=== PATIENT | female | born 1935 | race Caucasian/White ===

== ENCOUNTER 2017-04-10 11:39 | Inpatient (IN) | payer OTHER, MEDICARE ==
[~2017-04-10] VITALS: Ht 152.4 cm; Wt 45.0 kg
[2017-04-10 11:48] VITALS: BP 170/70; PULSE 110; RESP 18; TEMP 97.7; O2SAT 96
[2017-04-10 11:55] VITALS: O2SAT 98
[2017-04-10 12:43] LABS: AUTOMATED NEUTROPHIL # 8.3 TH/MM3 (1.8-7.7); BASOPHIL # 0.1 TH/MM3 (0-0.2); BASOPHIL % 0.5 % (0.0-2.0); EOSINOPHIL % 0.1 % (0.0-4.0); HEMOGLOBIN 11.9 GM/DL (11.6-15.3); LYMPH % 8.6 % (9.0-44.0); LYMPHOCYTE # 0.9 TH/MM3 (1.0-4.8); MEAN CELL VOLUME 99.3 FL (80.0-100.0); MEAN CORPUSCULAR HEMOGLOBIN 35.8 PG (27.0-34.0); MEAN PLATELET VOLUME 7.4 FL (7.0-11.0); MONO % 10.1 % (0.0-8.0); NEUT % 80.7 % (16.0-70.0); PLATELET COUNT 248 TH/MM3 (150-450); RED BLOOD COUNT 3.32 MIL/MM3 (4.00-5.30); RED CELL DISTRIBUTION WIDTH 14.5 % (11.6-17.2); WHITE BLOOD COUNT 10.3 TH/MM3 (4.0-11.0)
[2017-04-10 12:52] LABS: BACTERIA, URINE MANY /hpf; BILIRUBIN, URINE NEG (NEG); BLOOD, URINE TRACE (NEG); GLUCOSE,URINE NEG (NEG); KETONE, URINE 10 mg/dL (NEG); MUCUS URINE FEW /lpf (OCC); NITRITE,URINE POS (NEG); PH, URINE 5.5 (5.0-8.5); SQUAMOUS EPITHELIAL CELL URINE 1 /hpf (0-5); URINE COLOR YELLOW (YELLW/STRAW); URINE LEUKOCYTE ESTERASE LARGE (NEG); WHITE BLOOD CELL CLUMPS MANY
[2017-04-10 12:53] LABS: PROTHROMBIN TIME - PATIENT 10.4 SEC (9.8-11.6)
[2017-04-10 12:57] LABS: BICARBONATE 23.6 MEQ/L (21.0-32.0); CALCIUM 10.1 MG/DL (8.5-10.1); CREATININE 0.66 MG/DL (0.50-1.00)
--- NOTE | 2017-04-10 12:58 | RADRPT ---
EXAM DATE/TIME: 04/10/2017 12:42 [facility] COMPARISON: No previous studies available for comparison. EXTERNAL COMPARISON : INDICATIONS : Pelvic pain, fall. MEDICAL HISTORY : None. SURGICAL HISTORY : None. ENCOUNTER: Initial ACUITY: 1 day PAIN SCORE: 2/10 LOCATION: Right hip FINDINGS: Degenerative changes lower lumbar spine and both hips. Displaced fracture is not appreciated. CONCLUSION: Negative for fracture Catrachito Stewart MD FACR on April 10, 2017 at 12:55 Board Certified Radiologist. This report was verified electronically.
--- NOTE | 2017-04-10 12:59 | RADRPT ---
EXAM DATE/TIME: 04/10/2017 12:43 [facility] COMPARISON: No previous studies available for comparison. INDICATIONS : Right side rib pain,fall. MEDICAL HISTORY : None. SURGICAL HISTORY : None. ENCOUNTER: Initial ACUITY: 1 day PAIN SCORE: 3/10 LOCATION: Right lower chest FINDINGS: Surgical clips right axilla. Old rib fractures along the right. I do not see acute displaced rib fr acture. CONCLUSION: Negative for pneumothorax. Old rib fractures on the right. Catrachito Stewart MD FACR on April 10, 2017 at 12:56 Board Certified Radiologist. This report was verified electronically.
--- NOTE | 2017-04-10 13:05 | RADRPT ---
EXAM DATE/TIME: 04/10/2017 12:53 [facility] COMPARISON: No previous studies available for comparison. INDICATIONS : Fall last night RADIATION DOSE: 33.08 CTDIvol (mGy) MEDICAL HISTORY : None SURGICAL HISTORY : None. ENCOUNTER: Initial ACUITY: 1 day PAIN SCALE: 6/10 LOCATION: cranial TECHNIQUE: Multiple contiguous axial images were obtained of the head. Using automated exposure control and adj ustment of the mA and/or kV according to patient size, radiation dose was kept as low as reasonably a chievable to obtain optimal diagnostic quality images. DICOM format image data is available electro nically for review and comparison. FINDINGS: CEREBRUM: The ventricles are normal for age. No evidence of midline shift, mass lesion, hemorrhage or acute in farction. No extra-axial fluid collections are seen. POSTERIOR FOSSA: The cerebellum and brainstem are intact. The 4th ventricle is midline. The cerebellopontine angle i s unremarkable. EXTRACRANIAL: The visualized portion of the orbits is intact. SKULL: The calvaria is intact. Cephalhematoma right temporal region No evidence of skull fracture. CONCLUSION: Cephalhematoma right temporal region. Intracranial contents unremarkable. Catrachito Stewart MD FACR on April 10, 2017 at 13:03 Board Certified Radiologist. This report was verified electronically.
--- NOTE | 2017-04-10 13:10 | PD ---
HPI Chief Complaint: Fall Time Seen by Provider: 12:27 Travel History International Travel<30 days: No Contact w/Intl Traveler<30days: No Traveled to known affect area: No History of Present Illness HPI Although EMS brought the patient and the patient herself states that she fell down last night. She denies having any severe pain anywhere that inhibited her from getting up however she stated that she was shaking so much that she could not steady herself and this was the reason why she spent the night on the floor. Patient's episode was not witnessed and so it is difficult to say whether there was any syncope or simply a mechanical fall. Per patient she denies having any memory gaps and recalls everything. Patient denies any associated headache back pain hip pain or extremity pain. No alleviating or aggravating factors. Only area that the patient complained of was a right lower chest wall which she complained of a 2 out of 10 level discomfort [facility] Social History Alcohol Use: No Tobacco Use: No Substance Use: No Allergies-Medications (Allergen,Severity, Reaction): Coded Allergies: No Known Allergies (Unverified , 04/10/17) Review of Systems Except as stated in HPI: all other systems reviewed are Neg General / Constitutional: No: Fever Eyes: No: Visual changes HENT: No: Headaches Cardiovascular: No: Chest Pain or Discomfort Respiratory: No: Shortness of Breath Gastrointestinal: No: Abdominal Pain Genitourinary: No: Dysuria Musculoskeletal: No: Pain Skin: No Rash Neurologic: Positive: Syncope (??) Psychiatric: No: Depression Endocrine: No: Polydipsia Hematologic/Lymphatic: No: Easy Bruising Physical Exam Narrative GENERAL: SKIN: Warm and dry. Multiple contusions noted including her right side of her face, right shoulder, bilateral gorman area, however no area of crepitus displacement or angulation HEAD: Atraumatic. Normocephalic. EYES: Pupils equal and round. No scleral icterus. No injection or drainage. ENT: No nasal bleeding or discharge. Mucous membranes pink and moist. NECK: Trachea midline. No JVD. CARDIOVASCULAR: Regular rate and rhythm. RESPIRATORY: No accessory muscle use. Clear to auscultation. Breath sounds equal bilaterally. GASTROINTESTINAL: Abdomen soft, non-tender, nondistended. Hepatic and splenic margins not palpable. MUSCULOSKELETAL: Extremities without clubbing, cyanosis, or edema. No obvious deformities. NEUROLOGICAL: Awake and alert. No obvious cranial nerve deficits. Motor grossly within normal limits. Five out of 5 muscle strength in the arms and legs. Normal speech. PSYCHIATRIC: Appropriate mood and affect; insight and judgment normal. Data Data Last Documented VS Vital Signs Date Time Temp Pulse Resp B/P (MAP) Pulse Ox O2 Delivery O2 Flow Rate FiO2 04/10/17 11:55 98 Room Air 04/10/17 11:48 97.7 110 18 170/70 (103) Orders Orders Basic Metabolic Panel (Bmp) (04/10/17 12:27) Complete Blood Count With Diff (04/10/17 12:27) Prothrombin Time / Inr (Pt) (04/10/17 12:27) Act Partial Throm Time (Ptt) (04/10/17 12:27) Urinalysis - C+S If Indicated (04/10/17 12:27) Pelvis, Ap Only (Routine) (04/10/17 12:27) Ct Brain W/O Iv Contrast(Rout) (04/10/17 12:27) Ct Cerv Spine W/O Contrast (04/10/17 12:27) Ct Facial Bones W/O Iv Cont (04/10/17 12:27) Iv Access Insert/Monitor (04/10/17 12:27) Ecg Monitoring (04/10/17 12:27) Oximetry (04/10/17 12:27) Oxygen Administration (04/10/17 12:27) Ribs, Uni (W/Exp Cxr-Min 3vw) (04/10/17 ) Urine Culture (04/10/17 12:15) Electrocardiogram (04/10/17 ) Admit Order (Ed Use Only) (04/10/17 15:57) Consult Neurosurgery (04/10/17 ) Admit To Inpatient (04/10/17 ) Vital Signs (Adult) Q4H (04/10/17 15:56) Activity Bed Rest (04/10/17 15:56) Orthopaedic Technologist / Telemetry .CONTINUOUS (04/10/17 15:56) Intake + Output DRAKE.QSHIFT (04/10/17 15:56) Diet Heart Healthy (04/10/17 Dinner) Sodium Chloride 0.9% Flush (Ns Flush) (04/10/17 16:00) Sodium Chloride 0.9% Flush (Ns Flush) (04/10/17 21:00) Comprehensive Metabolic Panel (04/11/17 06:00) Complete Blood Count With Diff (04/11/17 06:00) Pt Request For Service (04/10/17 15:56) Ot Request For Service (04/10/17 15:56) Case Management Consult (04/10/17 15:56) Scd Bilateral/Knee High DRAKE.BID (04/10/17 15:56) Naloxone Inj (Narcan Inj) (04/10/17 16:00) Magnesium Hydroxide Liq (Milk Of Magnesi (04/10/17 16:00) Sennosides (Senokot) (04/10/17 16:00) Bisacodyl Supp (Dulcolax Supp) (04/10/17 16:00) Lactulose Liq (Lactulose Liq) (04/10/17 16:00) Inpatient Certification (04/10/17 ) Ceftriaxone Inj (Rocephin Inj) (04/10/17 17:00) Labs Laboratory Tests Test 04/10/17 12:15 White Blood Count 10.3 TH/MM3 Red Blood Count 3.32 MIL/MM3 Hemoglobin 11.9 GM/DL Hematocrit 33.0 % Mean Corpuscular Volume 99.3 FL Mean Corpuscular Hemoglobin 35.8 PG Mean Corpuscular Hemoglobin Concent 36.0 % Red Cell Distribution Width 14.5 % Platelet Count 248 TH/MM3 Mean Platelet Volume 7.4 FL Neutrophils (%) (Auto) 80.7 % Lymphocytes (%) (Auto) 8.6 % Monocytes (%) (Auto) 10.1 % Eosinophils (%) (Auto) 0.1 % Basophils (%) (Auto) 0.5 % Neutrophils # (Auto) 8.3 TH/MM3 Lymphocytes # (Auto) 0.9 TH/MM3 Monocytes # (Auto) 1.0 TH/MM3 Eosinophils # (Auto) 0.0 TH/MM3 Basophils # (Auto) 0.1 TH/MM3 CBC Comment AUTO DIFF Differential Comment AUTO DIFF CONFIRMED Prothrombin Time 10.4 SEC Prothromb Time International Ratio 1.0 RATIO Activated Partial Thromboplast Time 23.6 SEC Urine Color YELLOW Urine Turbidity HAZY Urine pH 5.5 Urine Specific [place] 1.014 Urine Protein TRACE mg/dL Urine Glucose (UA) NEG mg/dL Urine Ketones 10 mg/dL Urine Occult Blood TRACE Urine Nitrite POS Urine Bilirubin NEG Urine Urobilinogen LESS THAN 2.0 MG/DL Urine Leukocyte Esterase LARGE Urine RBC 6 /hpf Urine WBC 76 /hpf Urine WBC Clumps MANY Urine Squamous Epithelial Cells 1 /hpf Urine Bacteria MANY /hpf Urine Mucus FEW /lpf Microscopic Urinalysis Comment CATH-CULTURE IND Blood Urea Nitrogen 18 MG/DL Creatinine 0.66 MG/DL Random Glucose 120 MG/DL Calcium Level 10.1 MG/DL Sodium Level 130 MEQ/L Potassium Level 4.4 MEQ/L Chloride Level 96 MEQ/L Carbon Dioxide Level 23.6 MEQ/L Anion Gap 10 MEQ/L Estimat Glomerular Filtration Rate 86 ML/MIN MDM Medical Decision Making Medical Screen Exam Complete: Yes Emergency Medical Condition: Yes Medical Record Reviewed: Yes Differential Diagnosis Intracranial hemorrhage versus skull fracture versus facial fracture versus neck fracture versus right rib fractures Narrative Course UA consistent with UTI, CBC without leukocytosis or anemia BMP showed some hyponatremia and some mild to moderate dehydration markers. CT head negative for skull fracture or intracranial hemorrhage. Cervical spine CT negative for any acute fracture or dislocation. Rib series are negative for any acute fractures did note some previous old healed rib fractures on the right side. Rest of imaging were negative for any fractures or dislocations. Due to the patient's frailty and abnormal lab findings patient will be admitted and have case management involved for possible placement Diagnosis Primary Impression: Generalized weakness Additional Impressions: Urinary tract infection Qualified Codes: N30.00 - Acute cystitis without hematuria Hyponatremia Admitting Information Admitting Physician Requests: Admit Lion Guillaume MD Apr 10, 2017 13:10
--- NOTE | 2017-04-10 13:35 | RADRPT ---
EXAM DATE/TIME: 04/10/2017 12:53 [facility] COMPARISON: No previous studies available for comparison. INDICATIONS : Fall last night RADIATION DOSE: 17.08 CTDIvol (mGy) MEDICAL HISTORY : None SURGICAL HISTORY : None. ENCOUNTER: Initial ACUITY: 1 day PAIN SCALE: 6/10 LOCATION: Bilateral neck TECHNIQUE: Volumetric scanning of the cervical spine was performed. Multiplanar reconstructions in the sagittal, coronal and oblique axial planes were performed. Using automated exposure control and adjustment o f the mA and/or kV according to patient size, radiation dose was kept as low as reasonably achievable to obtain optimal diagnostic quality images. DICOM format image data is available electronically f or review and comparison. FINDINGS: There is no acute fracture or prevertebral soft tissue swelling. Diffuse cervical spondylosis is note d. There is very prominent bridging osteophytes extending from C4 through C6. These result in moderat e to severe spinal stenoses at C4-5 and C5-6. Mild spinal stenosis is noted at C3-4 and C6-7. Moderat e bilateral foraminal narrowing is noted from C3 through C7. The bony relationship and alignment bet ween C1 and C2 is well maintained. CONCLUSION: 1. Moderate to severe spinal stenoses at C4-5 and C5-6 and mild spinal stenoses at C3-4 and C6-7. 2. No acute fracture or prevertebral soft tissue swelling. 3. Moderate bilateral narrowing from C3 through C7. 4. Diffuse cervical spondylosis. Guido Ordaz MD on April 10, 2017 at 13:28 Board Certified Radiologist. This report was verified electronically.
--- NOTE | 2017-04-10 13:41 | RADRPT ---
EXAM DATE/TIME: 04/10/2017 12:53 [facility] COMPARISON: No previous studies available for comparison. INDICATIONS : Fall last night,contusion right eye. RADIATION DOSE: 58.23 CTDIvol (mGy) MEDICAL HISTORY : None SURGICAL HISTORY : None. ENCOUNTER: Initial ACUITY: 1 day PAIN SCORE: 6/10 LOCATION: Right facial TECHNIQUE: Volumetric scanning of the facial bones was performed. Using automated exposure control and adjustme nt of the mA and/or kV according to patient size, radiation dose was kept as low as reasonably achiev able to obtain optimal diagnostic quality images. DICOM format image data is available electronicall y for review and comparison. FINDINGS: ORBITS: The orbital and infraorbital osseous structures are intact. The retroconal structures have a normal configuration. No radiopaque foreign bodies are seen. NASAL BONE: The nasal bone and maxillary spine are intact ZYGOMATIC ARCHES: Symmetric without evidence of fracture. SINUSES: The maxillary, ethmoid and frontal sinuses are intact. No air-fluid levels seen. NASAL CAVITY: The nasal septum is intact and midline. The lacrimal ducts are intact. SOFT TISSUES: There is a small subcutaneous hematoma in the right lateral supraorbital region. No evidence of under lying fracture. INTRACRANIAL: No intracranial air seen. CRIBIFORM PLATE: Grossly intact. CONCLUSION: Right supraorbital soft tissue hematoma. No evidence of fracture. Justus aGrcia MD on April 10, 2017 at 13:38 Board Certified Radiologist. This report was verified electronically.
[2017-04-10] MEDS ORDERED: SODIUM CHLORIDE 0.9% FLUSH 10 ML FLUSH IV FLUSH PRN (16:00)
[2017-04-10] MEDS ORDERED: SENNOSIDES 8.6 MG TAB PO PRN (16:00)
[2017-04-10] MEDS ORDERED: NALOXONE HCL 0.4 MG/ML AMP IV PUSH PRN (16:00)
[2017-04-10] MEDS ORDERED: MAGNESIUM HYDROXIDE SUSP 30 ML CUP PO PRN (16:00)
[2017-04-10] MEDS ORDERED: LACTULOSE SYRUP 20 GM/30 ML CUP PO PRN (16:00)
[2017-04-10] MEDS ORDERED: BISACODYL 10 MG SUPP RECTAL PRN (16:00)
[2017-04-10] MEDS: cefTRIAXone INJ 1,000 MG in SODIUM CHLORIDE 0.9% INJ 100 ML IV SCH (17:25)
[2017-04-10 17:28] VITALS: BP 152/67; PULSE 92; RESP 17; O2SAT 100
--- NOTE | 2017-04-10 17:50 | PD.CONS ---
History of Present Illness Service Neurosurgery Consult Requested By Emergency room. Dr. Guillaume Reason for Consult Cervical stenosis Primary Care Physician Unknown Diagnoses: History of Present Illness 82-year-old female who fell last night at home without definite loss of consciousness. She states that she does not remember the fall. She does not recall any dizziness prior to falling. She felt shaky after the fall, and was not able to stand up. She complains of generalized weakness in her lower extremities since she fell. No loss of bowel or bladder function since she fell. No significant neck or low back pain. No history of significant neck or back problems. Ms. Villarreal does state that she has had some gradual decline in her walking over the past year and has been using a rolling walker with a seat for approximately 10-12 months. She has had some problems with loose stools but no definite bowel or bladder dysfunction over the past year. Review of Systems Constitutional: DENIES: Fatigue, Fever Ears, nose, mouth, throat: COMPLAINS OF: Hearing loss, DENIES: Vertigo Respiratory: DENIES: Cough, Shortness of breath Cardiovascular: DENIES: Chest pain, Palpitations Gastrointestinal: COMPLAINS OF: Diarrhea, DENIES: Abdominal pain, Nausea, Vomiting Musculoskeletal: DENIES: Joint pain, Muscle aches, Stiffness, Back pain, Neck pain Hematologic/lymphatic: COMPLAINS OF: Bruising Neurologic: COMPLAINS OF: Abnormal gait, DENIES: Headache Psychiatric: DENIES: Confusion Past Family Social History Allergies: Coded Allergies: No Known Allergies (Unverified , 04/10/17) Past Medical History States she has "borderline" diabetes Gives no history of hypertension, dyslipidemia. No cardiac or pulmonary disease , cancer, arthritis. Past Surgical History No major surgeries reported Reported Medications No prescription medications reported Family History States no history of cancer, neurologic disorders in the family. No definite diabetes. Social History She smokes cigarettes for a few years when she was in her 20s or 30s. No history of significant alcohol use. Physical Exam Vital Signs Vital Signs Date Time Temp Pulse Resp B/P (MAP) Pulse Ox O2 Delivery O2 Flow Rate FiO2 04/10/17 17:28 92 17 152/67 (95) 100 Room Air 04/10/17 11:55 98 Room Air 04/10/17 11:55 98 Room Air 04/10/17 11:48 97.7 110 18 170/70 (103) 96 Physical Exam GENERAL: This is a well-nourished, normally developed elderly patient, no apparent distress. SKIN: Significant contusion and ecchymosis over the left forearm, hand and wrist HEAD: Positive edema and ecchymosis including periorbital edema and ecchymosis over the right side of the face and forehead. No scalp laceration EYES: Right periorbital edema and ecchymosis. Mild right conjunctival edema ENT: Right facial and periorbital edema and ecchymosis. No CSF otorrhea or rhinorrhea. Dentition intact. NECK: Trachea midline. No cervical spine tenderness. CARDIOVASCULAR: Regular rate and rhythm without murmurs, gallops, or rubs. RESPIRATORY: Clear to auscultation. Breath sounds equal bilaterally. No wheezes , rales, or rhonchi. GASTROINTESTINAL: Abdomen soft, non-tender, nondistended. No hepato-splenomegaly , or palpable masses. No guarding. MUSCULOSKELETAL: Extremities without cyanosis, or edema. No joint tenderness, or edema noted. No calf tenderness. Dorsalis pedis pulses 2+ bilateral NEUROLOGICAL: Awake and alert Oriented X 3 Speech is clear Conversant and appropriate Follow simple commands well Answers questions appropriately Reasonable judgment and insight Recent and remote memory are intact No evidence of anxiety or depression Pupils are equal and reactive to accommodation. Extra-ocular movements, visual larose to confrontation, facial sensorimotor, tongue, palate, sternocleidomastoid testing, and bilateral shoulder shrug are all intact. Sensation is intact to light touch in all extremities Strength normal major flexion and extension groups all extremities except for decreased to 3+/5 bilateral triceps and hand intrinsics. Brandi's absent bilaterally No ankle clonus Plantar responses absent bilateral Fine motor movements mildly impaired in both upper extremities Laboratory Laboratory Tests Test 04/10/17 12:15 White Blood Count 10.3 Red Blood Count 3.32 Hemoglobin 11.9 Hematocrit 33.0 Mean Corpuscular Volume 99.3 Mean Corpuscular Hemoglobin 35.8 Mean Corpuscular Hemoglobin Concent 36.0 Red Cell Distribution Width 14.5 Platelet Count 248 Mean Platelet Volume 7.4 Neutrophils (%) (Auto) 80.7 Lymphocytes (%) (Auto) 8.6 Monocytes (%) (Auto) 10.1 Eosinophils (%) (Auto) 0.1 Basophils (%) (Auto) 0.5 Neutrophils # (Auto) 8.3 Lymphocytes # (Auto) 0.9 Monocytes # (Auto) 1.0 Eosinophils # (Auto) 0.0 Basophils # (Auto) 0.1 CBC Comment AUTO DIFF Differential Comment AUTO DIFF CONFIRMED Prothrombin Time 10.4 Prothromb Time International Ratio 1.0 Activated Partial Thromboplast Time 23.6 Urine Color YELLOW Urine Turbidity HAZY Urine pH 5.5 Urine Specific [place] 1.014 Urine Protein TRACE Urine Glucose (UA) NEG Urine Ketones 10 Urine Occult Blood TRACE Urine Nitrite POS Urine Bilirubin NEG Urine Urobilinogen LESS THAN 2.0 Urine Leukocyte Esterase LARGE Urine RBC 6 Urine WBC 76 Urine WBC Clumps MANY Urine Squamous Epithelial Cells 1 Urine Bacteria MANY Urine Mucus FEW Microscopic Urinalysis Comment CATH-CULTURE IND Blood Urea Nitrogen 18 Creatinine 0.66 Random Glucose 120 Calcium Level 10.1 Sodium Level 130 Potassium Level 4.4 Chloride Level 96 Carbon Dioxide Level 23.6 Anion Gap 10 Estimat Glomerular Filtration Rate 86 Date/Time Source Procedure Growth Status 04/10/17 12:15 Urine Catheterized Urine Urine Culture Pending Received Result Diagram: 04/10/17 1215 04/10/17 1215 Imaging 04/10/2017 CT scan of the head and cervical spine images are reviewed by the undersigned. No evidence of significant traumatic brain injury. There is positive right temporal cephalohematoma. There is severe stenosis at the C4-C6 levels related primarily to extensive posterior osteophytic disc complexes, ossification of the posterior longitudinal ligament at these levels. No acute fracture or subluxation noted. Pelvis X-Ray 04/10/[id number] Signed Impressions: Service Date/Time: Monday, April 10, 2017 12:42 - CONCLUSION: Negative for fracture Catrachito Stewart MD FACR Maxillofacial CT 04/10/171226 Signed Impressions: Service Date/Time: Monday, April 10, 2017 12:53 - CONCLUSION: Right supraorbital soft tissue hematoma. No evidence of fracture. Justus Garcia MD Head CT 04/10/171226 Signed Impressions: Service Date/Time: Monday, April 10, 2017 12:53 - CONCLUSION: Cephalhematoma right temporal region. Intracranial contents unremarkable. Catrachito Stewart MD FACR Cervical Spine CT 04/10/171226 Signed Impressions: Service Date/Time: Monday, April 10, 2017 12:53 - CONCLUSION: 1. Moderate to severe spinal stenoses at C4-5 and C5-6 and mild spinal stenoses at C3-4 and C6-7. 2. No acute fracture or prevertebral soft tissue swelling. 3. Moderate bilateral narrowing from C3 through C7. 4. Diffuse cervical spondylosis. Guido Ordaz MD Ribs X-Ray 04/10/17 0000 Signed Impressions: Service Date/Time: Monday, April 10, 2017 12:43 - CONCLUSION: Negative for pneumothorax. Old rib fractures on the right. Catrachito Stewart MD FACR Assessment and Plan Assessment and Plan Impression: 1. 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 No acute fracture or subluxation 2. Temporal cephalhematoma without evidence of traumatic brain injury. Recommendations: Findings were discussed at length with the patient in the emergency room. She is being admitted for further observation and neurologic checks. Due to the patient's upper extremity weakness, particularly hand intrinsics and the severity of the stenosis noted on CT scan, an MRI of the cervical spine will be obtained to assess for significant edema in the cervical cord. Physical therapy consult. She may mobilize out of bed without a cervical brace. Dat Harper MD Apr 10, 2017 17:50
--- NOTE | 2017-04-10 18:16 | HHI.HP ---
[facility] Unknown Admission Diagnosis HYPONATREMIA, UTI, GEN WEAKNESS, SPINAL STENOSIS Diagnoses: Chief Complaint: fall Travel History International Travel<30 Days: No Contact w/Intl Traveler <30 Da: No Traveled to Known Affected Are: No History of Present Illness Patient is a very pleasant 82 yo F who says she is healthy otherwise patient herself states that she fell down last night. She denies having any severe pain anywhere that inhibited her from getting up however she stated that she was shaking so much that she could not steady herself and this was the reason why she spent the night on the floor. She thinks she did trip and fell. Patient 's episode was not witnessed and so it is difficult to say whether there was any syncope or simply a mechanical fall. Per patient she denies having any memory gaps and recalls everything. Patient denies any associated headache, back pain, hip pain or extremity pain. No alleviating or aggravating factors. Only area that the patient complained of was a right lower chest wall which she complained of a 2 out of 10 level discomfort on admission. Patient has a right hemiface echymosis , no change in vision. Had a headache but resolved. No weakness. Follows commands and has a very good strength. Denies having any cp, sob, palpitations, dizziness, seizures. No focal deficit. Says she takes 2 medications in the morning and at night but doesn't recall the name of this meds and also doesn't know the reason she is taking. Doesn't have insight in her medical problems. Review of Systems ROS Limitations: Clinical Condition Except as stated in HPI: all other systems reviewed are Neg Past Family Social History Past Medical History Says she takes 2 medications in the morning and at night but doesn't recall the name of this meds and also doesn't know the reason she is taking. Doesn't have insight in her medical problems. Past Surgical History Denies having surgeries in the past Reported Medications Last Impressions Pelvis X-Ray 04/10/17 9157 Signed Impressions: Service Date/Time: Monday, April 10, 2017 12:42 - CONCLUSION: Negative for fracture Catrachito Stewart MD FACR Maxillofacial CT 04/10/17 1227 Signed Impressions: Service Date/Time: Monday, April 10, 2017 12:53 - CONCLUSION: Right supraorbital soft tissue hematoma. No evidence of fracture. Justus Garcia MD Head CT 04/10/17 1227 Signed Impressions: Service Date/Time: Monday, April 10, 2017 12:53 - CONCLUSION: Cephalhematoma right temporal region. Intracranial contents unremarkable. Catrachito Stewart MD FACR Cervical Spine CT 04/10/177 Signed Impressions: Service Date/Time: Monday, April 10, 2017 12:53 - CONCLUSION: 1. Moderate to severe spinal stenoses at C4-5 and C5-6 and mild spinal stenoses at C3-4 and C6-7. 2. No acute fracture or prevertebral soft tissue swelling. 3. Moderate bilateral narrowing from C3 through C7. 4. Diffuse cervical spondylosis. Guido Ordaz MD Ribs X-Ray 04/10/17 0000 Signed Impressions: Service Date/Time: Monday, April 10, 2017 12:43 - CONCLUSION: Negative for pneumothorax. Old rib fractures on the right. Catrachito Stewart MD FACR Allergies: Coded Allergies: No Known Allergies (Unverified , 04/10/17) Family History Father and mother heart problems. Brother with health problems related to post- war Social History Denies tobacco, EtOH or illicit drug use. Physical Exam Vital Signs Vital Signs Date Time Temp Pulse Resp B/P (MAP) Pulse Ox O2 Delivery O2 Flow Rate FiO2 04/10/17 17:28 92 17 152/67 (95) 100 Room Air 04/10/17 11:55 98 Room Air 04/10/17 11:55 98 Room Air 04/10/17 11:48 97.7 110 18 170/70 (103) 96 Physical Exam GENERAL: This is a very pleasant elderly frail female, in no apparent distress. SKIN: No rashes. Right hemiface ecchymose. Cool and dry. HEAD: Atraumatic. Normocephalic. No temporal or scalp tenderness. EYES: Pupils equal round and reactive. Extraocular motions intact. No scleral icterus. No injection or drainage. ENT: Nose without bleeding, purulent drainage or septal hematoma. Throat without erythema, tonsillar hypertrophy or exudate. Uvula midline. Airway patent. NECK: Trachea midline. No JVD or lymphadenopathy. Supple, nontender, no meningeal signs. CARDIOVASCULAR: Regular rate and rhythm without murmurs, gallops, or rubs. RESPIRATORY: Clear to auscultation. Breath sounds equal bilaterally. No wheezes , rales, or rhonchi. GASTROINTESTINAL: Abdomen soft, non-tender, nondistended. No hepato-splenomegaly , or palpable masses. No guarding. MUSCULOSKELETAL: Extremities without clubbing, cyanosis, or edema. No joint tenderness, effusion, or edema noted. No calf tenderness. Negative Homans sign bilaterally. NEUROLOGICAL: Awake and alert. Cranial nerves II through XII intact. Motor and sensory grossly within normal limits. Five out of 5 muscle strength in all muscle groups. Normal speech. Laboratory Laboratory Tests Test 04/10/17 12:15 White Blood Count 10.3 Red Blood Count 3.32 Hemoglobin 11.9 Hematocrit 33.0 Mean Corpuscular Volume 99.3 Mean Corpuscular Hemoglobin 35.8 Mean Corpuscular Hemoglobin Concent 36.0 Red Cell Distribution Width 14.5 Platelet Count 248 Mean Platelet Volume 7.4 Neutrophils (%) (Auto) 80.7 Lymphocytes (%) (Auto) 8.6 Monocytes (%) (Auto) 10.1 Eosinophils (%) (Auto) 0.1 Basophils (%) (Auto) 0.5 Neutrophils # (Auto) 8.3 Lymphocytes # (Auto) 0.9 Monocytes # (Auto) 1.0 Eosinophils # (Auto) 0.0 Basophils # (Auto) 0.1 CBC Comment AUTO DIFF Differential Comment AUTO DIFF CONFIRMED Prothrombin Time 10.4 Prothromb Time International Ratio 1.0 Activated Partial Thromboplast Time 23.6 Urine Color YELLOW Urine Turbidity HAZY Urine pH 5.5 Urine Specific [place] 1.014 Urine Protein TRACE Urine Glucose (UA) NEG Urine Ketones 10 Urine Occult Blood TRACE Urine Nitrite POS Urine Bilirubin NEG Urine Urobilinogen LESS THAN 2.0 Urine Leukocyte Esterase LARGE Urine RBC 6 Urine WBC 76 Urine WBC Clumps MANY Urine Squamous Epithelial Cells 1 Urine Bacteria MANY Urine Mucus FEW Microscopic Urinalysis Comment CATH-CULTURE IND Blood Urea Nitrogen 18 Creatinine 0.66 Random Glucose 120 Calcium Level 10.1 Sodium Level 130 Potassium Level 4.4 Chloride Level 96 Carbon Dioxide Level 23.6 Anion Gap 10 Estimat Glomerular Filtration Rate 86 Date/Time Source Procedure Growth Status 2/5/18 12:15 Urine Catheterized Urine Urine Culture Pending Received Result Diagram: 04/10/17 1215 04/10/17 1215 Imaging Last Impressions Pelvis X-Ray 04/10/177 Signed Impressions: Service Date/Time: Monday, April 10, 2017 12:42 - CONCLUSION: Negative for fracture Catrachito Stewart MD FACR Maxillofacial CT 04/10/17 1227 Signed Impressions: Service Date/Time: Monday, April 10, 2017 12:53 - CONCLUSION: Right supraorbital soft tissue hematoma. No evidence of fracture. Justus Garcia MD Head CT 04/10/17 122 Signed Impressions: Service Date/Time: Monday, April 10, 2017 12:53 - CONCLUSION: Cephalhematoma right temporal region. Intracranial contents unremarkable. Catrachito Stewart MD FACR Cervical Spine CT 04/10/177 Signed Impressions: Service Date/Time: Monday, April 10, 2017 12:53 - CONCLUSION: 1. Moderate to severe spinal stenoses at C4-5 and C5-6 and mild spinal stenoses at C3-4 and C6-7. 2. No acute fracture or prevertebral soft tissue swelling. 3. Moderate bilateral narrowing from C3 through C7. 4. Diffuse cervical spondylosis. Guido Ordaz MD Ribs X-Ray 04/10/17 0000 Signed Impressions: Service Date/Time: Monday, April 10, 2017 12:43 - CONCLUSION: Negative for pneumothorax. Old rib fractures on the right. Catrachito Stewart MD FACR Caprini VTE Risk Assessment Caprini VTE Risk Assessment: Mod/High Risk (score >= 2) Caprini Risk Assessment Model Point Value = 1 Point Value = 2 Point Value = 3 Point Value = 5 Age 41-60 Minor surgery BMI > 25 kg/m2 Swollen legs Varicose veins or History of unexplained or recurrent spontaneous Oral contraceptives or hormone replacement Sepsis (< 1 month) Serious lung disease, including pneumonia (< 1 month) Abnormal pulmonary function Acute myocardial infarction Congestive heart failure (< 1 month) History of inflammatory bowel disease Medical patient at bed rest Age 61-74 Arthroscopic surgery Major open surgery (> 45 min) Laparoscopic surgery (> 45 min) Malignancy Confined to bed (> 72 hours) Immobilizing plaster cast Central venous access Age >= 75 History of VTE Family history of VTE Factor V Leiden Prothrombin [id number] Lupus anticoagulant Anticardiolipin antibodies Elevated serum homocysteine Heparin-induced thrombocytopenia Other congenital or acquired thrombophilia Stroke (< 1 month) Elective arthroplasty Hip, pelvis, or leg fracture Acute spinal cord injury (< 1 month) Prophylaxis Regimen Total Risk Factor Score Risk Level Prophylaxis Regimen 0-1 Low Early ambulation 2 Moderate Order ONE of the following: *Sequential Compression Device (SCD) *Heparin 5000 units SQ BID 3-4 Higher Order ONE of the following medications: *Heparin 5000 units SQ TID *Enoxaparin/Lovenox 40 mg SQ daily (WT < 150 kg, CrCl > 30 mL/min) *Enoxaparin/Lovenox 30 mg SQ daily (WT < 150 kg, CrCl > 10-29 mL/min) *Enoxaparin/Lovenox 30 mg SQ BID (WT < 150 kg, CrCl > 30 mL/min) AND/OR *Sequential Compression Device (SCD) 5 or more Highest Order ONE of the following medications: *Heparin 5000 units SQ TID (Preferred with Epidurals) *Enoxaparin/Lovenox 40 mg SQ daily (WT < 150 kg, CrCl > 30 mL/min) *Enoxaparin/Lovenox 30 mg SQ daily (WT < 150 kg, CrCl > 10-29 mL/min) *Enoxaparin/Lovenox 30 mg SQ BID (WT < 150 kg, CrCl > 30 mL/min) AND *Sequential Compression Device (SCD) Assessment and Plan Assessment and Plan 82 yo F s/p fall at home, patient not sure if she tripped or not. 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 No acute fracture or subluxation Temporal cephalhematoma without evidence of traumatic brain injury neurosurgeon consulted Will check 2DECHO, carotid US, place on tele, holter monitor Will check CPK Mild hyponatremia: start gentle IVF NS and monitor Na level Hyperglycemia. check a1c Otherwise fairly normal labs Doesn't recall med problems, obtain records with home meds if possible . Monitor VS. Restart home meds DVT ppx scd./teds/lovenox Discussed Condition With pt, nurse, ED physician Physician Certification 2 Midnight Certification Type: Admission for Inpatient Services Order for Inpatient Services The services are ordered in accordance with Medicare regulations or non- Medicare payer requirements, as applicable. In the case of services not specified as inpatient-only, they are appropriately provided as inpatient services in accordance with the 2-midnight benchmark. Estimated LOS (days): 3 days is the estimated time the patient will need to remain in the hospital, assuming treatment plan goals are met and no additional complications. Post-Hospital Plan: Home Betzaida Cruz MD Apr 10, 2017 18:16
[2017-04-10 20:00] VITALS: BP 147/66; PULSE 103; RESP 18; TEMP 98.7; O2SAT 98
[2017-04-10] MEDS: SODIUM CHLORIDE 0.9% FLUSH 10 ML FLUSH IV FLUSH SCH (21:45)
--- NOTE | 2017-04-10 21:51 | EKG ---
Date Performed: 04/10/2017 Time Performed: 11:50:53 PTAGE: 82 years EKG: SINUS TACHYCARDIA BORDERLINE LEFT AXIS DEVIATION LEFT VENTRICULAR HYPERTROPHY AND ST-T DONALDSON GE ABNORMAL ECG PREVIOUS TRACING : 02/09/1995 19.56 DOCTOR: Courtney Lucas Interpretating Date/Time 04/10/2017 21:50:05
[2017-04-10] MEDS: SODIUM CHLOR 0.9% 1000 ML INJ 1,000 ML IV SCH (22:03)
--- NOTE | 2017-04-10 22:14 | RADRPT ---
EXAM DATE/TIME: 04/10/2017 21:14 [facility] COMPARISON: CT CERVICAL SPINE W/O CONTRAST, April 10, 2017, 12:53. INDICATIONS : Myelopathy. MEDICAL HISTORY : None. SURGICAL HISTORY : None. ENCOUNTER: Subsequent ACUITY: 1 day PAIN SCORE: 5/10 LOCATION: neck TECHNIQUE: Multiplanar, multisequence MRI examination of the cervical spine was performed. FINDINGS: VERTEBRAE: Normal vertebral body height. Homogeneous marrow signal. There is disc degeneration disc space narro wing from C3-C7. No bone marrow edema is demonstrated. ALIGNMENT: Mild lateral spaces of C3 over C4. CORD: Normal configuration and signal. POST FOSSA: The cerebellar tonsils are normal in position. C2-C3: The thecal sac has a normal configuration. There is no evidence of disc herniation or spinal canal s tenosis. The neural foramina are patent bilaterally. C3-C4: Broad-based bulging disc osteophyte complex. There appears to be narrowing of the neuroforamina bilat erally. This moderate spinal canal stenosis. C4-C5: Broad-based bulging with prominent disc osteophyte complex. The left neural foramen is patent. There is narrowing of the right neural foramina. There is moderate to prominent spinal canal stenosis. C5-C6: Broad-based bulging with prominent disc osteophyte complex. Mild narrowing of the neural foramina evelio aterally. Moderate to prominent spinal canal stenosis. C6-C7: Broad-based bulging disc osteophyte complex. There is narrowing of the neural foramina bilaterally. T here is moderate spinal canal stenosis. C7-T1: The thecal sac has a normal configuration. There is no evidence of disc herniation or spinal canal s tenosis. The neural foramina are patent bilaterally. CONCLUSION: 1. Moderate to prominent spinal canal stenosis at C4-5 and C5-6. 2. Moderate spinal canal stenosis at C3-4 and C6-7. 3. Primary bony degenerative changes, disc degeneration disc space narrowing from C3-C7. 4. Mild retrolisthesis of C3 over C4. Ricky Francis MD on April 10, 2017 at 22:07 Board Certified Radiologist. This report was verified electronically.
--- NOTE | 2017-04-10 22:47 | RADRPT ---
EXAM DATE/TIME: 04/10/2017 22:20 [facility] COMPARISON: No previous studies available for comparison. INDICATIONS : Syncope. MEDICAL HISTORY : Hearing loss. Gait problems. Bruising. SURGICAL HISTORY : None. ENCOUNTER: Initial ACUITY: 1 day PAIN SCORE: 0/10 LOCATION: Bilateral neck PEAK SYSTOLIC VELOCITIES (cm/sec): ICA/CCA RATIO: Right: 1.2 Left: 0.7 ICA: Right: 123.3 Left: 67.7 CCA: Right: 105.9 Left: 91.4 ECA: Right: 79.8 Left: 89.7 VERTEBRAL: Right: 73.2 antegrade Left: 73.2 antegrade Elevated flow velocities and ICA/CCA ratios have been found to correlate with increased degrees of vessel stenosis, calculated as percentage of diameter relative to a normal segment of distal ICA/CCA FINDINGS: RIGHT CAROTID: There is mild atherosclerotic plaquing at the bifurcation. No significant stenosis is visualized. Th e waveforms are within normal limits. LEFT CAROTID: There is mild atherosclerotic plaquing at the bifurcation. No significant stenosis is visualized. Th e waveforms are within normal limits. VERTEBRAL ARTERIES: Antegrade flow is seen in both vertebral arteries. MISCELLANEOUS: None. CONCLUSION: 1. Mild atherosclerotic plaquing at both carotid bifurcations. 2. No focal high grade or hemodynamically significant stenosis. Ricky Francis MD on April 10, 2017 at 22:44 Board Certified Radiologist. This report was verified electronically.
[2017-04-11] VITALS (10 sets, daily range): BP systolic 118–166; BP diastolic 56–71; PULSE 84–99; RESP 18–20; TEMP 97.6–99.2; O2SAT 98–100
[2017-04-11 07:56] LABS: AUTOMATED NEUTROPHIL # 4.1 TH/MM3 (1.8-7.7); BASOPHIL % 0.2 % (0.0-2.0); EOSINOPHIL % 0.3 % (0.0-4.0); HEMATOCRIT 27.9 % (35.0-46.0); LYMPH % 12.4 % (9.0-44.0); LYMPHOCYTE # 0.7 TH/MM3 (1.0-4.8); MEAN CORPUSCULAR HEMOGLOBIN 35.3 PG (27.0-34.0); MEAN CORPUSCULAR HGB CONC 35.7 % (32.0-36.0); MEAN PLATELET VOLUME 7.3 FL (7.0-11.0); MONO % 13.5 % (0.0-8.0); MONOCYTE # 0.8 TH/MM3 (0-0.9); NEUT % 73.6 % (16.0-70.0); PLATELET COUNT 204 TH/MM3 (150-450); RED BLOOD COUNT 2.82 MIL/MM3 (4.00-5.30); WHITE BLOOD COUNT 5.6 TH/MM3 (4.0-11.0)
[2017-04-11] MEDS: SODIUM CHLORIDE 0.9% FLUSH 10 ML FLUSH IV FLUSH SCH ×2 (08:05→21:00)
[2017-04-11 08:28] LABS: ALBUMIN 2.8 GM/DL (3.4-5.0); ALT (GPT) 33 U/L (10-53); AST (GOT) 40 U/L (15-37); BICARBONATE 25.4 MEQ/L (21.0-32.0); BLOOD UREA NITROGEN 17 MG/DL (7-18); CALCIUM 8.4 MG/DL (8.5-10.1); CHLORIDE 102 MEQ/L (98-107); CREATININE 0.52 MG/DL (0.50-1.00); GLOMERULAR FILTRATION RATE 113 ML/MIN (>89); GLUCOSE,RANDOM 107 MG/DL (74-106); SODIUM (NA) 134 MEQ/L (136-145)
[2017-04-11 08:31] LABS: ALKALINE PHOSPHATASE 38 U/L (45-117); TOTAL BILIRUBIN ADULT 0.8 MG/DL (0.2-1.0); TOTAL PROTEIN 6.2 GM/DL (6.4-8.2)
--- NOTE | 2017-04-11 10:11 | HHI.PR ---
Subjective Remarks Resting in bed, still complaining of pain in her lower extremity Overnight uneventful, afebrile Objective Vitals Vital Signs Date Time Temp Pulse Resp B/P (MAP) Pulse Ox O2 Delivery O2 Flow Rate FiO2 04/11/17 08:34 97.6 94 20 123/58 (79) 99 04/11/17 04:00 93 04/11/17 04:00 97.7 92 18 148/67 (94) 99 04/11/17 00:00 97.8 97 18 118/56 (76) 98 04/10/17 20:00 98.7 103 18 147/66 (93) 98 04/10/17 17:28 92 17 152/67 (95) 100 Room Air 04/10/17 11:55 98 Room Air 04/10/17 11:55 98 Room Air 04/10/17 11:48 97.7 110 18 170/70 (103) 96 I/O 04/10/17 04/10/17 04/10/17 04/11/17 04/11/17 04/11/17 07:00 15:00 23:00 07:00 15:00 23:00 Intake Total 100 ml Balance 100 ml Intake IV Total 100 ml # Voids 1 1 Result Diagram: 04/11/17 0730 04/11/17 0730 Imaging Last Impressions Pelvis X-Ray 04/10/171226 Signed Impressions: Service Date/Time: Monday, April 10, 2017 12:42 - CONCLUSION: Negative for fracture Catrachito Stewart MD FACR Maxillofacial CT 04/10/171226 Signed Impressions: Service Date/Time: Monday, April 10, 2017 12:53 - CONCLUSION: Right supraorbital soft tissue hematoma. No evidence of fracture. Justus Garcia MD Head CT 04/10/171226 Signed Impressions: Service Date/Time: Monday, April 10, 2017 12:53 - CONCLUSION: Cephalhematoma right temporal region. Intracranial contents unremarkable. Catrachito Stewart MD FACR Cervical Spine CT 04/10/171226 Signed Impressions: Service Date/Time: Monday, April 10, 2017 12:53 - CONCLUSION: 1. Moderate to severe spinal stenoses at C4-5 and C5-6 and mild spinal stenoses at C3-4 and C6-7. 2. No acute fracture or prevertebral soft tissue swelling. 3. Moderate bilateral narrowing from C3 through C7. 4. Diffuse cervical spondylosis. Guido Ordaz MD Ribs X-Ray 04/10/17 0000 Signed Impressions: Service Date/Time: Monday, April 10, 2017 12:43 - CONCLUSION: Negative for pneumothorax. Old rib fractures on the right. Catrachito Stewart MD FACR Cervical Spine MRI 04/10/17 0000 Signed Impressions: Service Date/Time: Monday, April 10, 2017 21:14 - CONCLUSION: 1. Moderate to prominent spinal canal stenosis at C4-5 and C5-6. 2. Moderate spinal canal stenosis at C3-4 and C6-7. 3. Primary bony degenerative changes, disc degeneration disc space narrowing from C3-C7. 4. Mild retrolisthesis of C3 over C4. Ricky Francis MD Carotid Artery Ultrasound 04/10/17 0000 Signed Impressions: Service Date/Time: Monday, April 10, 2017 22:20 - CONCLUSION: 1. Mild atherosclerotic plaquing at both carotid bifurcations. 2. No focal high grade or hemodynamically significant stenosis. Ricky Francis MD Objective Remarks GENERAL: This is a frail 82 years old female in no apparent distress. CARDIOVASCULAR: Regular rate and rhythm without murmurs, gallops, or rubs. RESPIRATORY: Fair air entry l bilaterally. No wheezes, rales, or rhonchi. GASTROINTESTINAL: Abdomen soft, non-tender, nondistended. Normal active bowel sounds MUSCULOSKELETAL: Extremities without clubbing, cyanosis, or edema. NEURO: Alert & Oriented x4 to person, place, time, situation. Moves all ext x4 A/P Assessment and Plan /6: MRI of the cervical spine showed 1. Moderate to prominent spinal canal stenosis at C4-5 and C5-6. 2. Moderate spinal canal stenosis at C3-4 and C6-7. 3. Primary bony degenerative changes, disc degeneration disc space narrowing from C3-C7. 4. Mild retrolisthesis of C3 over C4. Continue following with neurosurgery A/P: 82 yo F s/p fall at home, patient not sure if she tripped or not. 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 No acute fracture or subluxation Temporal cephalhematoma without evidence of traumatic brain injury Rhabdomyolysis neurosurgeon consulted Pending 2DECHO, carotid US, place on tele, holter monitor Increase CPK Mild hyponatremia: start gentle IVF NS and monitor Na level Hyperglycemia. Pending a1c Otherwise fairly normal labs Doesn't recall med problems, obtain records with home meds if possible . Monitor VS. Restart home meds DVT ppx scd./teds/lovenox Tomy Washington MD Apr 11, 2017 10:11
[2017-04-11] MEDS: SODIUM CHLOR 0.9% 1000 ML INJ 1,000 ML IV SCH (13:51)
--- NOTE | 2017-04-11 15:59 | HHI.NSPN ---
History Chief Complaint: feels better today Interval History 82-year-old female admitted after recent fall with generalized weakness. Complains of gradual progressive gait difficulty over the past year or so. Exam Results Vital Signs Date Time Temp Pulse Resp B/P (MAP) Pulse Ox O2 Delivery O2 Flow Rate FiO2 04/11/17 12:29 98.0 99 20 125/60 (81) 100 04/10/17 17:28 Room Air Physical Examination Awake and alert conversant and appropriate Speech is soft but clear Oriented to person an month and hospital Facial motor movements symmetric Extraocular movements intact Sensation intact to light touch upper and lower extremities Strength is within normal limits major flexion and extension groups all extremities with mild diminished bilateral hand intrinsics Brandi's response absent bilateral No ankle clonus Imaging studies: 04/10/2017 MRI cervical spine images reviewed. There is mild C3-4 retrolisthesis with moderately severe canal stenosis. Possible mild area of increased signal intensity within the cord at the C3 4 level. There is slightly lesser stenosis with thin layer of CSF seen around the cord at the C4-6 level. Lab, Micro, Other Results Laboratory Tests Test 04/11/17 07:30 White Blood Count 5.6 TH/MM3 Red Blood Count 2.82 MIL/MM3 Hemoglobin 10.0 GM/DL Hematocrit 27.9 % Mean Corpuscular Volume 99.0 FL Mean Corpuscular Hemoglobin 35.3 PG Mean Corpuscular Hemoglobin Concent 35.7 % Red Cell Distribution Width 15.0 % Platelet Count 204 TH/MM3 Mean Platelet Volume 7.3 FL Neutrophils (%) (Auto) 73.6 % Lymphocytes (%) (Auto) 12.4 % Monocytes (%) (Auto) 13.5 % Eosinophils (%) (Auto) 0.3 % Basophils (%) (Auto) 0.2 % Neutrophils # (Auto) 4.1 TH/MM3 Lymphocytes # (Auto) 0.7 TH/MM3 Monocytes # (Auto) 0.8 TH/MM3 Eosinophils # (Auto) 0.0 TH/MM3 Basophils # (Auto) 0.0 TH/MM3 CBC Comment DIFF FINAL Differential Comment Blood Urea Nitrogen 17 MG/DL Creatinine 0.52 MG/DL Random Glucose 107 MG/DL Total Protein 6.2 GM/DL Albumin 2.8 GM/DL Calcium Level 8.4 MG/DL Alkaline Phosphatase 38 U/L Aspartate Amino Transf (AST/SGOT) 40 U/L Alanine Aminotransferase (ALT/SGPT) 33 U/L Total Bilirubin 0.8 MG/DL Sodium Level 134 MEQ/L Potassium Level 3.8 MEQ/L Chloride Level 102 MEQ/L Carbon Dioxide Level 25.4 MEQ/L Anion Gap 7 MEQ/L Estimat Glomerular Filtration Rate 113 ML/MIN Total Creatine Kinase 243 U/L Creatine Kinase MB 3.1 NG/ML Creatine Kinase MB % 1.3 % Medical Decision Making Impression and Plan Impression: 1. Cervical stenosis 2. Possible mild cervical myelopathy. Questionable C3-4 level cord contusion. Plan: Findings were discussed with the patient. Options of surgical intervention versus conservative treatment discussed. She would like to continue conservative treatment at this time. Continue physical therapy out of bed with assistance as tolerated No evidence of cervical instability. No brace needed at this time. May require short course of inpatient rehabilitation versus senior living. Dat Harper MD Apr 11, 2017 15:59
[2017-04-11] MEDS: cefTRIAXone INJ 1,000 MG in SODIUM CHLORIDE 0.9% INJ 100 ML IV SCH (17:50)
[2017-04-12] VITALS (10 sets, daily range): BP systolic 104–167; BP diastolic 58–78; PULSE 70–87; RESP 17–20; TEMP 97.9–98.9; O2SAT 96–100
[2017-04-12] MEDS: SODIUM CHLOR 0.9% 1000 ML INJ 1,000 ML IV SCH (02:56)
[2017-04-12 04:52] LABS: BICARBONATE 24.9 MEQ/L (21.0-32.0); CREATININE 0.47 MG/DL (0.50-1.00)
[2017-04-12] MEDS: SODIUM CHLORIDE 0.9% FLUSH 10 ML FLUSH IV FLUSH SCH ×2 (09:00→20:13)
--- NOTE | 2017-04-12 11:42 | HHI.DS ---
Discharge Summary Admission Date Apr 10, 2017 at 3:59 pm Discharge Date: Apr 12, 2017 Admitting Diagnosis HYPONATREMIA, UTI, GEN WEAKNESS, SPINAL STENOSIS (1) Cervical stenosis of spine ICD Code: M48.02 - Spinal stenosis, cervical region (2) Dislocation of PIP joint of finger ICD Code: S63.289A - Dislocation of proximal interphalangeal joint of unspecified finger, initial encounter Procedures None. Brief History - From Admission Patient is a very pleasant 82 yo F who says she is healthy otherwise patient herself states that she fell down last night. She denies having any severe pain anywhere that inhibited her from getting up however she stated that she was shaking so much that she could not steady herself and this was the reason why she spent the night on the floor. She thinks she did trip and fell. Patient 's episode was not witnessed and so it is difficult to say whether there was any syncope or simply a mechanical fall. Per patient she denies having any memory gaps and recalls everything. Patient denies any associated headache, back pain, hip pain or extremity pain. No alleviating or aggravating factors. Only area that the patient complained of was a right lower chest wall which she complained of a 2 out of 10 level discomfort on admission. Patient has a right hemiface echymosis , no change in vision. Had a headache but resolved. No weakness. Follows commands and has a very good strength. Denies having any cp, sob, palpitations, dizziness, seizures. No focal deficit. Says she takes 2 medications in the morning and at night but doesn't recall the name of this meds and also doesn't know the reason she is taking. Doesn't have insight in her medical problems. CBC/BMP: 04/11/17 0730 04/12/17 0345 Significant Findings Laboratory Tests Test 04/10/17 12:15 04/11/17 07:30 04/12/17 03:45 Red Blood Count 3.32 MIL/MM3 (4.00-5.30) 2.82 MIL/MM3 (4.00-5.30) Hematocrit 33.0 % (35.0-46.0) 27.9 % (35.0-46.0) Mean Corpuscular Hemoglobin 35.8 PG (27.0-34.0) 35.3 PG (27.0-34.0) Neutrophils (%) (Auto) 80.7 % (16.0-70.0) 73.6 % (16.0-70.0) Lymphocytes (%) (Auto) 8.6 % (9.0-44.0) Monocytes (%) (Auto) 10.1 % (0.0-8.0) 13.5 % (0.0-8.0) Neutrophils # (Auto) 8.3 TH/MM3 (1.8-7.7) Lymphocytes # (Auto) 0.9 TH/MM3 (1.0-4.8) 0.7 TH/MM3 (1.0-4.8) Monocytes # (Auto) 1.0 TH/MM3 (0-0.9) Activated Partial Thromboplast Time 23.6 SEC (24.3-30.1) Urine Turbidity HAZY (CLEAR) Urine Ketones 10 mg/dL (NEG) Urine Occult Blood TRACE (NEG) Urine Nitrite POS (NEG) Urine Leukocyte Esterase LARGE (NEG) Urine RBC 6 /hpf (0-3) Urine WBC 76 /hpf (0-5) Urine WBC Clumps MANY (NONE) Urine Bacteria MANY /hpf (NONE) Urine Mucus FEW /lpf (OCC) Random Glucose 120 MG/DL (74-106) 107 MG/DL (74-106) Sodium Level 130 MEQ/L (136-145) 134 MEQ/L (136-145) 135 MEQ/L (136-145) Chloride Level 96 MEQ/L (98-107) Estimat Glomerular Filtration Rate 86 ML/MIN (>89) Hemoglobin 10.0 GM/DL (11.6-15.3) Total Protein 6.2 GM/DL (6.4-8.2) Albumin 2.8 GM/DL (3.4-5.0) Calcium Level 8.4 MG/DL (8.5-10.1) 8.0 MG/DL (8.5-10.1) Alkaline Phosphatase 38 U/L (45-117) Aspartate Amino Transf (AST/SGOT) 40 U/L (15-37) Total Creatine Kinase 243 U/L (26-192) Creatinine 0.47 MG/DL (0.50-1.00) Imaging Last Impressions Finger X-Ray 04/13/17 0000 Signed Impressions: Service Date/Time: April 15:01 - CONCLUSION: 1. Interval realignment of the PIP joint of the second digit. Jagdeep Stewart MD Hand X-Ray 04/12/17 0000 Signed Impressions: Service Date/Time: Wednesday, April 12, 2017 15:11 - CONCLUSION: Dislocation second PIP joint. No fracture. Catrachito Stewart MD FACR Pelvis X-Ray 04/10/171226 Signed Impressions: Service Date/Time: Monday, April 10, 2017 12:42 - CONCLUSION: Negative for fracture Catrachito Stewart MD FACR Maxillofacial CT 04/10/171226 Signed Impressions: Service Date/Time: Monday, April 10, 2017 12:53 - CONCLUSION: Right supraorbital soft tissue hematoma. No evidence of fracture. Justus Garcia MD Head CT [id number]/10/171226 Signed Impressions: Service Date/Time: Monday, April 10, 2017 12:53 - CONCLUSION: Cephalhematoma right temporal region. Intracranial contents unremarkable. Catrachito Stewart MD FACR Cervical Spine CT 04/10/171226 Signed Impressions: Service Date/Time: Monday, April 10, 2017 12:53 - CONCLUSION: 1. Moderate to severe spinal stenoses at C4-5 and C5-6 and mild spinal stenoses at C3-4 and C6-7. 2. No acute fracture or prevertebral soft tissue swelling. 3. Moderate bilateral narrowing from C3 through C7. 4. Diffuse cervical spondylosis. Guido Ordaz MD Ribs X-Ray 04/10/17 0000 Signed Impressions: Service Date/Time: Monday, April 10, 2017 12:43 - CONCLUSION: Negative for pneumothorax. Old rib fractures on the right. Catrachito Stewart MD FACR Cervical Spine MRI 04/10/17 0000 Signed Impressions: Service Date/Time: Monday, April 10, 2017 21:14 - CONCLUSION: 1. Moderate to prominent spinal canal stenosis at C4-5 and C5-6. 2. Moderate spinal canal stenosis at C3-4 and C6-7. 3. Primary bony degenerative changes, disc degeneration disc space narrowing from C3-C7. 4. Mild retrolisthesis of C3 over C4. Ricky Francis MD Carotid Artery Ultrasound 04/10/17 0000 Signed Impressions: Service Date/Time: Monday, April 10, 2017 22:20 - CONCLUSION: 1. Mild atherosclerotic plaquing at both carotid bifurcations. 2. No focal high grade or hemodynamically significant stenosis. Ricky Francis MD PE at Discharge GENERAL: This is a frail 82 years old female in no apparent distress. CARDIOVASCULAR: Regular rate and rhythm without murmurs, gallops, or rubs. RESPIRATORY: Fair air entry l bilaterally. No wheezes, rales, or rhonchi. GASTROINTESTINAL: Abdomen soft, non-tender, nondistended. Normal active bowel sounds MUSCULOSKELETAL: Extremities without clubbing, cyanosis, or edema. NEURO: Alert & Oriented x4 to person, place, time, situation. Moves all ext x4 Pt update on day of discharge Patient is currently doing well. No acute concerns. Hospital Course Ms. Villarreal was admitted after a fall. Work up indicated that severe C4-6 level stenosis. Neurosurgery was consulted. - Cervical stenosis of spine - Neurosurgery discussed various options. Pt opted for conservative management for now. - No brace required. - Acetaminophen and Tramadol for pain - Urinary tract infection - Patient has received Ceftriaxone. Urine cx growing E. Coli peña-sensitive. - Will switch to 3 day course of Bactrim. - Left index finger PIP joint dislocation - Appreciate hand surgery input. Patient underwent PIP joint reduction by hand surgery. Post procedure x-ray shows re-alignment. Full code. SCDs. Pt Condition on Discharge: Good Discharge Disposition: Disch w/ Home Health Serv Discharge Time: <= 30 minutes Discharge Instructions DIET: Follow Instructions for: Heart Healthy Diet Activities you can perform: Regular-No Restrictions Follow up Referrals: PCP Follow-up - 1 Week PCP Follow-up New Medications: Sulfamethoxazole-Trimethoprim (Sulfamethoxazole-Trimethoprim) 800-160 Mg Tab 1 TAB PO Q12HR for Infection, #4 TAB Tramadol (Ultram) 50 Mg Tab 50 MG PO Q8H PRN for PAIN SCALE 5 TO 10, #12 TAB Darlin Munson DO Apr 12, 2017 11:42
--- NOTE | 2017-04-12 11:43 | HHI.FF ---
Face to Face Verification Diagnosis: (1) Cervical stenosis of spine Physical Therapy Order: Evaluate and Treat, Improve ambulation, Strength and gait training Occupational Therapy Order: Evaluate and Treat, Improve ADL, Gross motor coordination, Fine motor coordination Home Health Nursing Order: Medical education Signs/symptoms of disease process Medication education-adverse effect Nursing assessment with vital signs I have seen patient Anjana Posada on 04/12/17. My clinical findings support the need for the requested home health care services because: Ltd mobility - disease progression Deconditioned w/ increased weakness Limited ability to care for self Need for psychosocial assistance High risk of falls Infection w/ risk of complications I certify that my clinical findings support that this patient is homebound because: Impaired cognitive ability/safety Unsteady gait/balance Unsafe to leave home unassisted Need for psychosocial assistance Var-hydliykrcs-esnemhjt bed/chair Unable to use public transportation Darlin Munson DO Apr 12, 2017 11:43 am
--- NOTE | 2017-04-12 13:09 | HM ---
Date Performed: 04/10/2017 Time Performed: 22:45:00 HOOKUP DATE: 04/10/17 10:45:00 PM Mon ANALYSIS START TIME: 04/10/2017 10:50:00 PM ANALYSIS END TIME: 04/11/2017 9:57:32 PM PATIENT AGE: 82 PATIENT HEIGHT: 60 PATIENT WEIGHT: 99 DRUG LIST: ROOM # [id number] PATIENT DIAGNOSIS: HYPONATREMIA UTI GENERAL WEAKNESS SOINAL STENOSIS TEST NARRATIVE: The patient's average heart rate was 94 BPM. Heart rates greater than 120 B PM were noted 3% of the time. No episodes of bradycardia were noted. No pauses exceeding 2.0 sec onds were noted. No ventricular ectopics were noted. 2 supraventricular ectopics, which repre sented < 1% of the total beat count, were noted. The highest supraventricular ectopic frequency occu rred from 07:00 AM to 08:00 AM Tue. During this time 1 SVE(s) occurred. Multiple episodes of ST depression (defined as -1.0 mm or more) were noted in channel 1. The maximum depression of -2.3 mm occurred at 09:53:50 AM Tue. No episodes of ST depression (defined as -1.0 mm or more) were noted in channel 2. Multiple episodes of ST depression (defined as -1.0 mm or more) were noted in channel 3 . The maximum depression of -4.0 mm occurred at 08:42:49 AM Tue. NO DIARY RETURNED TEST INTERPRETATION: Sinus rhythm rare PACs Signed by : Josemanuel Choi or
--- NOTE | 2017-04-12 13:20 | HHI.FF ---
Face to Face Verification Diagnosis: (1) Cervical stenosis of spine Physical Therapy Order: Evaluate and Treat, Improve ambulation, Strength and gait training Occupational Therapy Order: Evaluate and Treat, Improve ADL, Gross motor coordination, Fine motor coordination Home Health Nursing Order: Medical education Signs/symptoms of disease process Medication education-adverse effect Nursing assessment with vital signs Assistant Manager Order: To Evaluate: Living conditions/environment, Support services Order: To Provide: Long range planning, Community services I have seen patient Anjana Posada on 04/12/17. My clinical findings support the need for the requested home health care services because: Deconditioned w/ increased weakness Limited ability to care for self Need for psychosocial assistance High risk of falls Infection w/ risk of complications I certify that my clinical findings support that this patient is homebound because: Unsteady gait/balance Unsafe to leave home unassisted Need for psychosocial assistance Unable to use public transportation Darlin Munson DO Apr 12, 2017 1:20 pm
--- NOTE | 2017-04-12 16:33 | RADRPT ---
EXAM DATE/TIME: 04/12/2017 15:11 [facility] COMPARISON: No previous studies available for comparison. INDICATIONS : Left 1st and 2nd digit swelling and bruising. Patient fell. MEDICAL HISTORY : None. SURGICAL HISTORY : None. ENCOUNTER: Initial ACUITY: 2 days PAIN SCORE: 4/10 LOCATION: Left hand. FINDINGS: Dislocation at the PIP joint second digit without fracture. No other fractures seen. CONCLUSION: Dislocation second PIP joint. No fracture. Catrachito Stewart MD FACR on April 12, 2017 at 16:30 Board Certified Radiologist. This report was verified electronically.
--- NOTE | 2017-04-12 17:37 | HHI.PR ---
Subjective Remarks Follow up for recent fall, cervical stenosis of spine, left index finger PIP dislocation. Patient is currently doing well. However, she complains of left index finger swelling and pain. No fever, chills. Objective Vitals Vital Signs Date Time Temp Pulse Resp B/P (MAP) Pulse Ox O2 Delivery O2 Flow Rate FiO2 04/12/17 11:32 98.1 75 20 142/60 (87) 100 04/12/17 08:08 97.9 79 20 125/78 (94) 99 04/12/17 03:15 98.3 82 17 126/58 (80) 96 04/12/17 00:42 98.7 86 18 104/65 (78) 98 04/12/17 00:00 85 04/11/17 20:32 98.1 89 18 166/71 (102) 99 04/11/17 20:00 84 I/O 04/11/17 04/11/17 04/11/17 04/12/17 04/12/17 04/12/17 07:00 15:00 23:00 07:00 15:00 23:00 Intake Total 720 ml 400 ml 720 ml Output Total 300 ml Balance 720 ml 400 ml 420 ml Intake Oral 720 ml 400 ml 720 ml Output Urine Total 300 ml # Voids 6 1 4 # Bowel Movements 1 0 3 Result Diagram: 04/11/17 0730 04/12/17 0345 Imaging Last Impressions Hand X-Ray 04/12/17 0000 Signed Impressions: Service Date/Time: Wednesday, April 12, 2017 15:11 - CONCLUSION: Dislocation second PIP joint. No fracture. Catrachito Stewart MD FACR Pelvis X-Ray 04/10/171226 Signed Impressions: Service Date/Time: Monday, April 10, 2017 12:42 - CONCLUSION: Negative for fracture Catrachito Stewart MD FACR Maxillofacial CT 04/10/171226 Signed Impressions: Service Date/Time: Monday, April 10, 2017 12:53 - CONCLUSION: Right supraorbital soft tissue hematoma. No evidence of fracture. Justus Garcia MD Head CT 04/10/171226 Signed Impressions: Service Date/Time: Monday, April 10, 2017 12:53 - CONCLUSION: Cephalhematoma right temporal region. Intracranial contents unremarkable. Catrachito Stewart MD FACR Cervical Spine CT 04/10/17 1227 Signed Impressions: Service Date/Time: Monday, April 10, 2017 12:53 - CONCLUSION: 1. Moderate to severe spinal stenoses at C4-5 and C5-6 and mild spinal stenoses at C3-4 and C6-7. 2. No acute fracture or prevertebral soft tissue swelling. 3. Moderate bilateral narrowing from C3 through C7. 4. Diffuse cervical spondylosis. Guido Ordaz MD Ribs X-Ray 04/10/17 0000 Signed Impressions: Service Date/Time: Monday, April 10, 2017 12:43 - CONCLUSION: Negative for pneumothorax. Old rib fractures on the right. Catrachito Stewart MD FACR Cervical Spine MRI 04/10/17 0000 Signed Impressions: Service Date/Time: Monday, April 10, 2017 21:14 - CONCLUSION: 1. Moderate to prominent spinal canal stenosis at C4-5 and C5-6. 2. Moderate spinal canal stenosis at C3-4 and C6-7. 3. Primary bony degenerative changes, disc degeneration disc space narrowing from C3-C7. 4. Mild retrolisthesis of C3 over C4. Ricky Francis MD Carotid Artery Ultrasound 04/10/17 0000 Signed Impressions: Service Date/Time: Monday, April 10, 2017 22:20 - CONCLUSION: 1. Mild atherosclerotic plaquing at both carotid bifurcations. 2. No focal high grade or hemodynamically significant stenosis. Ricky Francis MD Objective Remarks GENERAL: Alert, NAD. SKIN: Warm and dry. HEAD: Normocephalic. EYES: No scleral icterus. No injection or drainage. NECK: Supple, trachea midline. No JVD or lymphadenopathy. CARDIOVASCULAR: Regular rate and rhythm without murmurs, gallops, or rubs. RESPIRATORY: Breath sounds equal bilaterally. No accessory muscle use. GASTROINTESTINAL: Abdomen soft, non-tender, nondistended. MUSCULOSKELETAL: No cyanosis, or edema. Left index finger is swollen, pain on palpation. Unable to move PIP joint. BACK: Nontender without obvious deformity. No CVA tenderness. Procedures None. A/P Problem List: (1) Dislocation of PIP joint of finger ICD Code: S63.289A - Dislocation of proximal interphalangeal joint of unspecified finger, initial encounter (2) Cervical stenosis of spine ICD Code: M48.02 - Spinal stenosis, cervical region Assessment and Plan Ms. Villarreal was admitted after a fall. Work up indicated that severe C4-6 level stenosis. Neurosurgery was consulted. - Cervical stenosis of spine - Neurosurgery discussed various options. Pt opted for conservative management for now. - No brace required. - Acetaminophen and Tramadol for pain - Urinary tract infection - Patient has received Ceftriaxone. Urine cx growing E. Coli peña-sensitive. - Will switch to 3 day course of Bactrim. - Left index finger PIP joint dislocation - Will consult hand surgery. - May need to be reduced and/or splint. Full code. SCDs. IF cleared by hand surgery, potential discharge in the AM. Darlin Munson DO Apr 12, 2017 17:37
[2017-04-12] MEDS ORDERED: traMADol HCL 50 MG TAB PO PRN (17:45)
[2017-04-12] MEDS ORDERED: ACETAMINOPHEN 500 MG CPLT PO PRN (17:45)
--- NOTE | 2017-04-12 19:28 | ECHRPT ---
Indication: Syncope CONCLUSIONS The left ventricular systolic function is normal with an estimated ejection fraction in the range of 60-65%. Trace mitral valve regurgitation. Mild aortic valve stenosis (peak grad 26, mean shelby 14). Mild aortic valve regurgitation. There is mild tricuspid valve regurgitation. BP: 170 / 70 HR: 110 Rhythm: MEASUREMENTS (Male / Female) Normal Values Technical Quality:Good 2D ECHO LV Diastolic Diameter PLAX 4.4 cm 4.2 - 5.9 / 3.9 - 5.3 cm LV Systolic Diameter PLAX 3.1 cm IVS Diastolic Thickness 0.9 cm 0.6 - 1.0 / 0.6 - 0.9 cm LVPW Diastolic Thickness 0.7 cm 0.6 - 1.0 / 0.6 - 0.9 cm LV Relative Wall Thickness 0.4 RV Internal Dim ED PLAX 2.0 cm LA Systolic Diameter LX 3.3 cm 3.0 - 4.0 / 2.7 - 3.8 cm DOPPLER AV Peak Velocity 256.0 cm/s AV Peak Gradient 26.2 mmHg AV Mean Gradient 14.0 mmHg AV Velocity Time Integral 59.0 cm LVOT Peak Velocity 133.8 cm/s LVOT Peak Gradient 7.2 mmHg LVOT Velocity Time Integral 24.7 cm MR Peak Velocity 610.0 cm/s MR Peak Gradient 148.8 mmHg Mitral E Point Velocity 95.0 cm/s Mitral A Point Velocity 96.3 cm/s Mitral E to A Ratio 1.0 TR Peak Velocity 335.0 cm/s TR Peak Gradient 44.9 mmHg FINDINGS LEFT VENTRICLE Normal left ventricular size. Wall thickness is normal. The left ventricular systolic function is normal with an estimated ejection fraction in the range of 60-65%. RIGHT VENTRICLE Normal right ventricular size and systolic function. LEFT ATRIUM The left atrial size is normal. RIGHT ATRIUM The right atrial size is normal. ATRIAL SEPTUM Normal atrial septal thickness without atrial level shunting by limited color doppler interrogation. AORTA The aortic root and proximal ascending aorta are normal in size on limited imaging. MITRAL VALVE Structurally normal mitral valve. Trace mitral valve regurgitation. No mitral valve stenosis. AORTIC VALVE Mild aortic valve stenosis (peak grad 26, mean shelby 14) Mild aortic valve regurgitation. TRICUSPID VALVE There is mild tricuspid valve regurgitation. There is estimated mild pulmonary hypertension present (50 mmHg). PULMONARY VALVE The pulmonary valve is not well visualized. VESSELS The inferior vena cava is normal in size. PERICARDIUM No pericardial effusion. Chad Bejarano DO (Electronically Signed) Final Date:12 April 2017 19:27
[2017-04-12] MEDS: SULFAMETHOXAZOLE-TRIMETHOPRIM DS 800-160 MG TAB PO SCH (20:13)
[2017-04-13] VITALS: BP 117/68; PULSE 76; RESP 18; TEMP 98.9; O2SAT 99
[2017-04-13 04:00] VITALS: BP 136/67; PULSE 73; RESP 18; TEMP 97.9; O2SAT 98
[2017-04-13] MEDS: SULFAMETHOXAZOLE-TRIMETHOPRIM DS 800-160 MG TAB PO SCH (07:33)
[2017-04-13] MEDS: SODIUM CHLORIDE 0.9% FLUSH 10 ML FLUSH IV FLUSH SCH (07:33)
[2017-04-13 08:00] VITALS: BP 127/86; PULSE 78; RESP 20; TEMP 98.3; O2SAT 98
[2017-04-13 12:11] VITALS: BP 143/67; PULSE 81; RESP 20; TEMP 98; O2SAT 97
[2017-04-13] MEDS ORDERED: TRAM50 PO (13:51)
[2017-04-13] MEDS ORDERED: SULF1TAB23 PO (13:51)
[2017-04-13] MEDS ORDERED: LIDOCAINE HCL 1% 50 ML VIAL ONE (14:20)
--- NOTE | 2017-04-13 16:03 | RADRPT ---
EXAM DATE/TIME: 04/13/2017 15:01 [facility] COMPARISON: HAND LEFT LIMITED (2VWS), April 12, 2017, 15:11. INDICATIONS : Post reduction- Pain post fall. MEDICAL HISTORY : None. SURGICAL HISTORY : None. ENCOUNTER: Subsequent ACUITY: 3 days PAIN SCORE: 3/10 LOCATION: Left 2nd Digit. FINDINGS: There has been interval relocation of the PIP joint of the second digit. The alignment is good. No de finite fracture is seen. No retained foreign body is present. The remainder the visualized osseous structures are intact. CONCLUSION: 1. Interval realignment of the PIP joint of the second digit. Jagdeep Stewart MD on April 13, 2017 at 16:00 Board Certified Radiologist. This report was verified electronically.
[2017-04-13 16:11] VITALS: BP 157/70; PULSE 80; RESP 20; TEMP 97.7; O2SAT 98
--- NOTE | 2017-04-14 07:42 | MB ---
cc: ENRRIQUE PLAZA M.D. DATE OF CONSULTATION 04/13/2017 REFERRING PHYSICIAN The patient is being seen at the request of Dr. Derik Kuhn. REASON FOR CONSULTATION A dislocated left index finger. HISTORY OF PRESENT ILLNESS The patient is an 82-year-old female who was admitted on April 10, 2017. The patient apparently had fallen at home and was admitted with diagnoses of hyponatremia, urinary tract infection, general weakness and spinal stenosis. The patient was treated accordingly and has continued to improve. Yesterday it was noted that the patient had finger pain in the left hand and an x-ray was performed on April 13, 2017. A hand x-ray had been performed on 04/12/2017. Consultation was placed late yesterday afternoon for consultation regarding a dislocation of the PIP joint of her left index finger. PAST MEDICAL HISTORY As noted above, the patient has several medical problems which brought her into the hospital. SOCIAL HISTORY The patient lives alone and has been unable to get into her bath rub for one year. REVIEW OF SYSTEMS The review of systems is limited. PAST MEDICAL HISTORY The patient takes several medications, although she was unable to name them. PAST SURGICAL HISTORY Surgical history is denied. ALLERGIES No known food or drug allergies. FAMILY HISTORY Significant for heart disease. SOCIAL HISTORY She denies tobacco, alcohol or drug use. EXAMINATION The patient is sitting comfortably in bed. VITAL SIGNS: Her temperature is 98.0, pulse of 81, respirations 20, blood pressure is 143/67 and pulse oximetry is 97 on room air. LABORATORY DATA The patient's lab data shows a fasting blood sugar of 107 and 97 on consecutive days, H&H has a normal white count on the , although she is slightly anemic. HEAD, EYES, EARS, NOSE, AND THROAT: Her extraocular muscles are intact and pupils are equal round reactive to light. Mouth is clear. NECK: Supple without masses. EXTREMITIES: Examination of the upper extremities reveals inability to bend the index finger which is held straight. There is swelling around the PIP joints consistent with a dislocation. There is decreased sensation to the tip of her finger, although she does have feeling, the tip is warm and well-perfused. Reviewed the x-rays, the patient does have a dorsal dislocation of the middle phalanx and the proximal phalanx. IMPRESSION The patient has a dislocation dorsally of the PIP joint of the left index finger. PLAN The finger will be reduced at the bedside. PROCEDURE The patient's left index finger was anesthetized with lidocaine 1% plain. After several minutes when the finger was numb, gentle pressure on the proximal aspect of the middle phalanx allowed us to push the bone back into place. The patient then was immediately able to flex and extend the finger and the repair was stable. The reduction was stable. The finger was then splinted in slight flexion, lacie taped to the finger next to it using a [place]um[place]oam splint dorsally in 25 degrees of flexion with some tube gauze between the finger and the splint. Two Velcro lacie loops were placed loosely to hold the splint in place. The patient was advised that she can remove it tomorrow and begin active range of motion. The patient can also follow up in our clinic as needed. The patient is cleared for discharge. MD ERVIN Trejo/WENDY /3:41 PM /7:32 AM
== END 2017-04-13 17:45 | disposition home health service (06) | DRG 552 ==
LOC: NEPC 11:39 → NEDA 15:59 → N05B 18:56
PROVIDERS: ADMIT Hospitalist; ATTEND Hospitalist
PROC: 0RSXXZZ Reposition Left Finger Phalangeal Joint, External Approach (ICD-10-PCS; principal; 2017-04-13)
DX: M48.02 Spinal stenosis, cervical region (principal); M62.82 Rhabdomyolysis; N39.0 Urinary tract infection, site not specified; M50.01 Cervical disc disorder with myelopathy, high cervical region; E87.1 Hypo-osmolality and hyponatremia; D64.9 Anemia, unspecified; S63.281A Dislocation of proximal interphalangeal joint of left index finger, initial encounter; M47.812 Spondylosis without myelopathy or radiculopathy, cervical region; R73.9 Hyperglycemia, unspecified; S00.03XA Contusion of scalp, initial encounter; B96.20 Unspecified Escherichia coli [E. coli] as the cause of diseases classified elsewhere; W01.0XXA Fall on same level from slipping, tripping and stumbling without subsequent striking against object, initial encounter; Y92.009 Unspecified place in unspecified non-institutional (private) residence as the place of occurrence of the external cause; Z87.891 Personal history of nicotine dependence
CPT/HCPCS: 70450; 70486; 71101; 72125; 72141; 72170; 73120; 73140; 80048; 80053; 81001; 82550; 82552; 85025; 85610; 85730; 87077; 87086; 87186; 93005; 93225; 93226; 93306; 93880; J0696; J7030